=== PATIENT | male | born 1970 | race Caucasian/White ===

== ENCOUNTER 2018-12-28 17:19 | Emergency (ER) | payer SELFPAY ==
[~2018-12-28] VITALS: Ht 185.4 cm; Wt 81.6 kg
[2018-12-28 17:30] VITALS: BP 151/87
--- NOTE | 2018-12-28 17:34 | NUR ---
PT TRIAGED AND SENT TO ER [facility].
--- NOTE | 2018-12-28 17:38 | NUR ---
PT TO ER BED 10
--- NOTE | 2018-12-28 17:51 | NUR ---
pt to xray via w/c accompanied by radiology clerk
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
--- NOTE | 2018-12-28 18:46 | NUR ---
Patient being evaluated by PA at bedside.
[2018-12-28 19:02] VITALS: BP 151/87
--- NOTE | 2018-12-28 19:03 | NUR ---
Patient discharged with v/s stable. Written and verbal after care instructions given and explained. Patient alert, oriented and verbalized understanding of instructions. Ambulatory with steady gait. All questions addressed prior to discharge. ID band removed. Patient advised to follow up with PMD. Rx of TRAMADOL, MOTRIN given. Patient educated on indication of medication including possible reaction and side effects. Opportunity to ask questions provided and answered.
== END 2018-12-28 19:03 | disposition home or self-care (01) ==
LOC: MED 17:19
DX: M54.2 Cervicalgia (principal); M54.6 Pain in thoracic spine; V89.2XXA Person injured in unspecified motor-vehicle accident, traffic, initial encounter; Y93.89 Activity, other specified; Y92.488 Other paved roadways as the place of occurrence of the external cause; Y99.8 Other external cause status
CPT/HCPCS: 72072; 99283

== ENCOUNTER 2018-12-29 20:37 | Emergency (ER) | payer SELFPAY ==
[~2018-12-29] VITALS: Ht 182.9 cm; Wt 77.1 kg
--- NOTE | 2018-12-29 20:49 | NUR ---
PT TRIAGED AND SENT TO ER LOBBY. VSS.
[2018-12-29 20:55] VITALS: BP 138/79
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
--- NOTE | 2018-12-29 22:01 | NUR ---
Patient ambulated to bed 6. RN evaluating patient at bedside.
--- NOTE | 2018-12-29 22:34 | NUR ---
Patient taken to CT scan via wheelchair by tech.
--- NOTE | 2018-12-29 22:41 | NUR ---
Patient returned from CT scan. RN re-evaluating patient at bedside.
--- NOTE | 2018-12-29 23:08 | NUR ---
Dr. Henao evaluating patient at bedside.
[2018-12-29 23:41] VITALS: BP 122/72
--- NOTE | 2018-12-29 23:41 | NUR ---
Patient discharged with v/s stable. Written and verbal after care instructions given and explained. Patient verbalized understanding. Ambulatory with steady gait. All questions addressed prior to discharge. Advised to follow up with PMD.
== END 2018-12-29 23:41 | disposition home or self-care (01) ==
LOC: MED 20:37
DX: M54.6 Pain in thoracic spine (principal)
CPT/HCPCS: 72128; 99284